=== PATIENT | male | born 1990 | race Caucasian/White ===

== ENCOUNTER 2020-08-28 11:00 | Emergency (ER) | payer OTHER, SELFPAY ==
--- NOTE | ~2020-08-28 | XR_ITS ---
EXAMINATION: XR abdomen/kub 1V EXAM DATE: 08/28/2020 13:28 INDICATION: Right flank pain. TECHNIQUE: Frontal projection(s) of the abdomen for interpretation. Comparison is made to prior exami nation from 08/28/2020, earlier same date. FINDINGS: The right UPJ 3-4 mm stone is identified, indicated between the L2 and L3 transverse proce sses. There is expected amount of colonic stool and gas. No small bowel obstruction or organomegaly. There are no osseous abnormalities identified. IMPRESSION: Right UPJ stone identified, indicated. Reviewed, dictated and finalized at location A. OLITHOGRAPHER
--- NOTE | ~2020-08-28 | CT_ITS ---
EXAMINATION: CT abdomen pelvis wo con DATE: 08/28/2020 12:50 INDICATION: Right flank pain TECHNIQUE: Computed tomography (CT) of the abdomen and pelvis was performed without intravenous contr ast. Automated exposure control and iterative reconstruction technique were employed. The dose-length product was 1353.07 mGy-cm. COMPARISON: None FINDINGS: Lung bases are clear. Heart size is normal. Small pericardial effusion. No pleural effusion. Liver, g allbladder, spleen, pancreas and bilateral adrenal glands are normal. 3 mm obstructing stone at the p roximal right ureter with mild right hydronephrosis. No other urolithiasis. Left kidney and ureter ar e normal. Bladder is normal. Bowels including the appendix are normal. No free intraperitoneal gas or fluid. No pathologically enlarged abdominal or pelvic lymphadenopathy. Multiple Schmorl's nodes in t he mid to lower thoracic spine. IMPRESSION: 1. At least partially obstructing 3 mm proximal right ureteral stone with mild right hydronephrosis. Reviewed, dictated and finalized at location B. T MACHINE OPERATOR
[2020-08-28 11:39] VITALS: BP 132/95; PULSE 118; RESP 20; TEMP 36.8; O2SAT 94
[2020-08-28 12:01] VITALS: BP 140/83; O2SAT 96
[2020-08-28 12:09] LABS: Basophils Percent Auto 0.2 % (0.2-1.2); Eosinophils Absolute Auto 0.1 K/mm3 (0-0.3); Eosinophils Percent Auto 0.8 % (0-4.4); Hematocrit 45.9 % (42.0-52.0); Hemoglobin 15.7 g/dL (14.0-18.0); Immature Granulocyte Absolute 0.03 K/mm3 (0.00-0.031); Immature Granulocyte Percent A 0.3 % (0-0.5); Lymphocytes Absolute Auto 1.59 K/mm3 (0.9-3.2); Lymphocytes Percent Auto 18.2 % (18.3-44.2); Mean Corpuscular HGB Conc 34.2 g/dl (32-36); Mean Corpuscular Volume 87.8 fl (80-100); Mean Platelet Volume 9.6 fl (7.4-10.4); Monocytes Absolute Auto 0.5 K/mm3 (0.1-0.6); Monocytes Percent Auto 5.3 % (2.6-8.5); Neutrophils Absolute Auto 6.6 K/mm3 (1.3-6.7); Neutrophils Percent Auto 75.2 % (45.5-73.1); Platelet Count Result 236 k/mm3 (150-375); Red Blood Count 5.23 M/mm3 (4.6-6.20); Red Cell Distribution Width 12.1 % (11.5-14.5); White Blood Count 8.7 K/mm3 (4.5-10.0)
[2020-08-28 12:13] LABS: Add Urine Microscopic? YES; Appearance Urine Clear (Clear); Bacteria Urine Trace /hpf; Bilirubin Urine Negative (Negative); Blood Urine 3+ (Negative); Color Urine Yellow (Yellow); Glucose Urine UA Negative (Negative); Ketones Urine Negative (Negative); Leukocyte Esterase Ur Negative LEU/UL (Negative); Mucus Urine Heavy /lpf; Nitrate Urine Negative (Negative); Protein Urine 1+ mg/dL (Negative); RBC Urine >75 /hpf (0-2); Specific Grav Ur 1.025 (1.001-1.035); Urobilinogen Urine Negative mg/dL (<2.0)
[2020-08-28 12:16] VITALS: BP 137/90; O2SAT 94
--- NOTE | 2020-08-28 12:19 | ED.ABDPAIN ---
HPI - Abdominal Pain General Chief Complaint: Abdominal Pain Stated Complaint: right side pain/vomiting Time Seen by Provider: 08/28/20 12:11 Source: patient Mode of arrival: ambulatory History of Present Illness HPI narrative: Patient is a 30 y/o male complaining of right side pain starting this morning. He rates his pain as 7-8/10. There is no pain radiation. There is no alleviating or exacerbating factor. However, his pain has resolved spontaneously at this time. He had some nausea and vomiting, but no diarrhea or dysuria. Related Data Allergies Allergy/AdvReac Type Severity Reaction Status Date / Time amoxicillin Allergy Unknown ? POSSIBLY Verified 08/28/20 11:46 Review of Systems Constitutional: Constitutional: Denies chills, Denies fever(s), Denies headache(s) and Denies weakness Eyes: Eyes: Denies blurry vision ENT: Denies headache(s) and Denies neck pain Cardiovascular: Cardiovascular: Denies chest pain and Denies dyspnea Respiratory: Respiratory: Denies cough and Denies dyspnea Gastrointestinal: Gastrointestinal: Denies abdominal pain, Denies diarrhea, Reports nausea and Reports vomiting Genitourinary: Genitourinary: Denies hematuria, Denies dysuria and Reports flank pain Musculoskeletal: Musculoskeletal: Denies back pain and Denies neck pain Neurologic: Denies headache(s) and Denies weakness [facility] Social History Social History Gender identity (if verbalized by the patient): Male Exam Const: General: no acute distress and well developed Orientation/consciousness: oriented to person, oriented to place, oriented to time and patient oriented x3 HENMT: Head: normocephalic Ears: external ears normal General nose exam: Normal external nose present Eyes: General: appearance normal, both eyes and all related structures Conjunctivae: conjunctivae normal Neck: Neck: normal visual inspection and full ROM Chest: Chest palpation & inspection: normal inspection of the chest and no tenderness Resp: Effort & Inspection: normal respiratory effort Auscultation: clear to auscultation bilaterally Cardio: Rate: regular rate Rhythm: regular rhythm GI: GI Palp: No abdominal tenderness and Yes Soft to palpation Skin: General skin exam: normal color and turgor normal Neuro: General: oriented to person, oriented to place, oriented to time and patient oriented x3 Cognition (Neuro): normal cognition Extrem: General: normal to inspection, full ROM and no pedal edema Psych: Appearance: grossly normal Mental Status: mental status grossly normal Affect: normal affect Course Reevaluation(s) Reevaluation #1: Rechecked. Patient feels well with no pain. Date: 08/28/20 Time: 14:06 Consultations Consultation #1: Discussed with Dr. Jones, who agrees to with plan for discharge and will follow up. Date: 08/28/20 Time: 14:19 Vital Signs Vital signs: Vital Signs Temperature 36.8 C 08/28/20 11:39 Pulse Rate 118 H 08/28/20 11:39 Respiratory Rate 20 08/28/20 11:39 Blood Pressure 132/95 H 08/28/20 11:39 Pulse Oximetry 94 08/28/20 11:39 Temperature 36.8 C 08/28/20 11:39 Pulse Rate 118 H 08/28/20 11:39 Respiratory Rate 20 08/28/20 11:39 Blood Pressure 131/94 H 08/28/20 13:16 Pulse Oximetry 94 08/28/20 12:31 MDM - Abdominal Pain Lab Data Result diagrams: 08/28/20 11:59 08/28/20 11:59 Labs: Lab Results 08/28/20 08/28/20 08/28/20 Range/Units 11:59 11:59 11:59 WBC 8.7 (4.5-10.0) K/mm3 RBC 5.23 (4.6-6.20) M/mm3 Hgb 15.7 (14.0-18.0) g/dL Hct 45.9 (42.0-52.0) % MCV 87.8 (80-100) fl MCH 30.0 (26-34) pg MCHC 34.2 (32-36) g/dl RDW 12.1 (11.5-14.5) % Plt Count 236 (150-375) k/mm3 MPV 9.6 (7.4-10.4) fl Immature Gran % (Auto) 0.3 (0-0.5) % Neut % (Auto) 75.2 H (45.5-73.1) % Lymph % (Auto) 18.2 L (18.3-44.2) % Simpson % (Auto) 5.3 (2.6-
[2020-08-28 12:20] LABS: Alanine Aminotransferase 54 U/L (4-50); Albumin Level 4.6 g/dL (3.5-5.1); Alkaline Phosphatase 103 U/L (38-126); Anion Gap 11 mmol/L (8-16); Aspartate Amino Transferase 38 U/L (17-59); Bilirubin,Total 0.7 mg/dL (0.2-1.3); Blood Urea Nitrogen 14 mg/dL (9-20); Calcium 9.1 mg/dL (8.4-10.2); Carbon Dioxide 26 mmol/L (22-30); Chloride 103 mmol/L (98-107); Estimated CRCL calculation 95 ml/min; Estimated Glomerular Filt Rate > 60; Glucose 114 mg/dL (75-110); Lipase 52 U/L (23-300); Sodium 140 mmol/L (137-145)
[2020-08-28 12:31] VITALS: BP 124/87; O2SAT 94
[2020-08-28 13:16] VITALS: BP 131/94
== END 2020-08-28 14:38 | disposition home or self-care (01) ==
PROVIDERS: General Practice; Emergency Provider Emergency Medicine; PCP Family Medicine
DX: N13.2 Hydronephrosis with renal and ureteral calculous obstruction (principal)
CPT/HCPCS: 36415; 74018; 74176; 80053; 81001; 83690; 85025; 87086; 99284